=== PATIENT | female | born 1990 | race Caucasian/White ===

== ENCOUNTER 2021-03-02 12:03 | Outpatient (CLI) | payer SELFPAY ==
[2021-03-02 12:43] VITALS: BP 134/78; PULSE 100; RESP 18; TEMP 96.3
--- NOTE | 2021-03-02 16:00 | P.MSEPDOC ---
Presenting Problems - Arrival Data Date of Arrival on Unit: 03/02/21 Time of Arrival on Unit: 12:00 Mode of Transport: Wheelchair - Complaint OB-Reason for Admission/Chief Complaint: Pain Comment: cramping, yeast infx. post cerclage 02/14/21 Medical History - Information : 3 Para: 2 Term: 1 : 1 Abortions: Spontaneous or Elective: 0 Number of Living Children: 2 - Gestational Age Gestational Age by KATTY (wks/days): 21 Weeks and 5 Days - History Complications: Incompetent Cervix, Smoker Comment: cerclage placed 02/14/21. pt states 3.5cm with protruding membranes at her anatamy scan. Previous deliveries at 35 and 38 weeks gestation Review of Systems - Review of Systems Constitutional: No problems Breast: No problems ENT: No problems Cardiovascular: No problems Respiratory: No problems Gastrointestinal: No problems Genitourinary: No problems Musculoskeletal: No problems Neurological: No problems Skin: No problems Vital Signs - Temperature Temperature: 96.3 F Temperature Source: Temporal Artery Scan - Pulse Right Sitting Brachial Pulse Rate: 100 Pulse Assessment Method: Automatic Cuff - Respirations Respiratory Rate: 18 Oxygen Delivery Method: Room Air O2 Sat by Pulse Oximetry: 98 - Blood Pressure Right Arm Sitting Blood Pressure: 134/78 Blood Pressure Mean: 96 Blood Pressure Source: Automatic Cuff Medical Screen Scoring - Cervical Exam Dilation (cm): 0 - Assessment - Baby A Baseline FHR: 150 Physician Notification - Physician Notified Physician Notified Date: 03/02/21 Physician Notified Time: 12:20 Physician: Dr Yahir Daniel Order Received: Yes - Notification Comment Comment: Ok to dc home. Pt to follow up with Dr Chiang/high risk with her concerns Maternal Triage Index - Maternal Triage Index Presenting for scheduled procedure w/no complaint: No - Stat/Priority 1 Stat Priority 1: No - Urgent/Priority 2 Urgent Priority 2: No - Prompt/Priority 3 Prompt Priority 3: No - Non-Urgent/Priority 4 Non-Urgent Priority 4: Yes Criteria Met for Priority 4: Yeast infection, mild cramping - Scheduled/Requesting Priority 5 Scheduled/Requesting Priority 5: No Disposition - Disposition OB Disposition: Discharge to home Discharge Date: 03/02/21 Discharge Time: 12:25 I agree with the RN Medical Screening Exam: Yes Physician's MSE Comment: Pt. advised to stop Monistat since it is causing cramping and to follow up with her physician for further recommendations. She is advised that she should go to [facility] in the future since she is a high risk and that is where her MFM specialist is. Case reviewed; plan agreed upon as documented in EMR&OBIX.: Yes Diagnosis: RELATED CONDITIONS, UNSPECIFIED, SECOND TRIMESTER Additional Diagnoses: Cervical incompetence with cerclage
== END 2021-03-02 12:25 | disposition home or self-care (01) ==
LOC: FBPOP 12:03
PROVIDERS: ATTEND Obstetrics & Gynecology
DX: O26.892 Other specified pregnancy related conditions, second trimester (principal); O34.32 Maternal care for cervical incompetence, second trimester; O99.332 Smoking (tobacco) complicating pregnancy, second trimester; F17.200 Nicotine dependence, unspecified, uncomplicated; Z3A.21 21 weeks gestation of pregnancy
CPT/HCPCS: 99213

== ENCOUNTER → 2022-11-21 | Outpatient (CLI) | payer OTHER ==
--- NOTE | 2022-11-21 10:06 | CT ---
EXAMINATION TYPE: CT brain wo/w con DATE OF EXAM: 11/21/2022 COMPARISON: None HISTORY: Drainage from ears CT DLP: 1853.0 mGycm Automated exposure control for dose reduction was used. CONTRAST: CT scan of the head is performed without and with IV Contrast, patient injected with 100 mL of Isovue 300. FINDINGS: There is no abnormal enhancing mass or midline shift identified. The ventricles and sulci are within normal limits in size. The globes are intact and the visualized sinuses are clear. IV contrast admi nistration only IMPRESSION: Negative contrast enhanced head CT exam.
== END | disposition home or self-care (01) ==
LOC: RADCTMAIN 09:08
PROVIDERS: ATTEND Family Medicine
DX: H70.90 Unspecified mastoiditis, unspecified ear (principal); H60.90 Unspecified otitis externa, unspecified ear
CPT/HCPCS: 70470; Q9967